=== PATIENT | male | born 2000 | race Caucasian/White ===

== ENCOUNTER 2021-05-05 23:29 | Emergency (ER) | payer BC ==
--- NOTE | 2021-05-06 01:54 | EDM.PDOC ---
ED HPI GENERAL MEDICAL PROBLEM - General Chief Complaint: Skin Complaint Stated Complaint: LUMP IN ABD Time Seen by Provider: 05/06/21 00:30 Source of Information: Reports: Patient History Limitations: Reports: No Limitations - History of Present Illness INITIAL COMMENTS - FREE TEXT/NARRATIVE: Patient is 20-year-old male no significant past medical history presenting with chief complaint of bumps on the groin area. Patient states they have been there for 7 to 10 days. Patient reports minimal pain has some slight discomfort with pressure in the area but denies any fevers, chills, nausea, vomiting, discharge, bleeding. No prior intervention. No previous medical attention. Symptoms do not seem to be be getting better or worse. Size of the area has remained relatively constant. Left Groin Pain Score (Numeric/FACES): 4 - Related Data Allergies Allergy/AdvReac Type Severity Reaction Status Date / Time azithromycin Allergy Blisters Verified 05/06/21 00:04 Past Medical History Musculoskeletal History: Reports: Other (See Below) Other Musculoskeletal History: fx fingers, sternum Psychiatric History: Reports: Addiction Dermatologic History: Reports: Other (See Below) Other Dermatologic History: abscess to neck area - Past Surgical History HEENT Surgical History: Reports: Oral Surgery Social & Family History - Tobacco Use Years of Tobacco use: 5 - Caffeine Use Caffeine Use: Reports: Coffee, Energy Drinks - Recreational Drug Use Recreational Drug Use: Yes Recreational Drug 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 ED EXAM, SKIN/RASH Exam: See Below Text/Narrative:: I have reviewed the triage vital signs Const: Well nourished, well developed, appears stated age Eyes: Pupils Equal and reactive to light bilaterally, no conjunctival injection HENT: No signs of trauma or swelling, Neck supple without meningismus CV: Regular Rate Rhythm, Warm, well-perfused extremities RESP: Unlabored respiratory effort GI: soft, non-tender, non-distended, no masses MSK: No gross deformities appreciated Skin: Small pustular areas to the left lateral suprapubic area. No areas of fluctuance. No crepitus. Warm, dry. 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 Sensation and motor function of extremities grossly intact. Psych: Appropriate mood and affect. Bedside ultrasound performed to evaluate for presence of abscess formation. No evidence of drainable collection. No significant cobblestoning. Course - Vital Signs Last Recorded V/S: Last Vital Signs Temp 36.9 C 05/05/21 23:57 Pulse 99 05/05/21 23:57 Resp 20 05/05/21 23:57 BP 136/78 05/05/21 23:57 Pulse Ox 96 05/05/21 23:57 Departure - Departure Time of Disposition: 01:52 Disposition: Home, Self-Care 01 Clinical Impression: Folliculitis - Discharge Information Instructions: Folliculitis Referrals: PCP,None [Primary Care Provider] - Forms: ED Department Discharge Sepsis Event Note (ED) - Focused Exam Vital Signs: Vital Signs Temp Pulse Resp BP Pulse Ox 05/05/21 23:57 36.9 C 99 20 136/78 96 - Assessment/Plan Assessment:: Patient is 20-year-old male presented to the emergency room with clinical evidence of folliculitis. No evidence of abscess or necrotizing infection. Patient will be started on doxycycline and have outpatient follow-up. Return precautions given his usual. Patient agrees with plan of care.
== END 2021-05-06 02:01 | disposition home or self-care (01) ==
LOC: JD.ED 23:29
DX: L73.9 Follicular disorder, unspecified (principal); Z88.1 Allergy status to other antibiotic agents; Z87.891 Personal history of nicotine dependence
CPT/HCPCS: 99283